=== PATIENT | female | born 1965 | race Caucasian/White ===

== ENCOUNTER 2017-07-13 08:38 | Emergency (ER) | payer BC ==
[~2017-07-13] VITALS: Ht 170.2 cm; Wt 67.6 kg
[2017-07-13 09:30] VITALS: BP 119/80
== END 2017-07-13 09:30 | disposition home or self-care (01) ==
LOC: EME 08:38
DX: H10.89 Other conjunctivitis (principal)
CPT/HCPCS: 99281; 99283